=== PATIENT | female | born 1965 | race Caucasian/White ===

== ENCOUNTER → 2019-08-14 | Outpatient (CLI) | payer OTHER ==
--- NOTE | 2019-08-14 13:29 | RADIOLOGY REPORT (SQ) ---
EXAM DESCRIPTION: UGI SERIES COMPLETED DATE/TIME: 08/14/2019 8:38 am REASON FOR STUDY: DIAPHRAGMATIC HERNIA WITHOUT OBSTRUCTION OR GANGRE K44.9 DIAPHRAGMATIC HERNIA WIT HOUT OBSTRUCTION OR GANGRENE COMPARISON: None. TECHNIQUE: Under fluoroscopic guidance, patient ingested effervescent granules followed by thick and thin barium. Fluoroscopic spot images and routine radiographic images acquired and stored on PACS. 12 MM BARIUM TABLET GIVEN: Barium tablet passed easily through the esophagus and into the stomach wit hout delay. LIMITATIONS: None. FLUOROSCOPY TIME: FLUORO TIME: 3 minutes 15 images saved to PACS. FINDINGS: NEUROMUSCULAR COORDINATION OF SWALLOW: Normal. No aspiration. ESOPHAGEAL MOTILITY: Normal peristalsis. No esophageal spasm. ESOPHAGEAL MUCOSA: Normal mucosa without masses or ulceration. GASTRO-ESOPHAGEAL JUNCTION: Small hiatal hernia may be present. Gastroesophageal reflux to the level of the clavicles demonstrated. STOMACH: Normal without masses or ulcerations. GASTRIC OUTLET: No delay in emptying. Normal pylorus. DUODENAL BULB: Normal distention. No spasm or ulceration. DUODENUM: Mucosa normal. No extrinsic masses or malrotation. PROXIMAL SMALL BOWEL: Mucosa normal. No extrinsic masses or malrotation. NON-GI TRACT STRUCTURES: No significant finding. OTHER: No other significant finding. IMPRESSION: SMALL HIATAL HERNIA WITH GASTROESOPHAGEAL REFLUX. OTHERWISE UNREMARKABLE STUDY. COMMENT: None Quality ID [id number]: Final reports for procedures using fluoroscopy that document radiation exposure alexis malena, or exposure time and number of fluorographic images (if radiation exposure indices are not avail able) TECHNICAL DOCUMENTATION: JOB ID: [id number] [employer]- All Rights Reserved Reading location - IP/workstation name: [email or web address] [id number]
== END ==
LOC: RAD 07:55
PROVIDERS: ATTEND Internal Medicine Gastroenterology
DX: K44.9 Diaphragmatic hernia without obstruction or gangrene (principal); K21.9 Gastro-esophageal reflux disease without esophagitis; R11.11 Vomiting without nausea
CPT/HCPCS: 74247

== ENCOUNTER 2019-09-07 17:47 | Emergency (ER) | payer OTHER ==
[2019-09-07] MEDS ORDERED: NORMAL SALINE 1000 ML 1,000 ML IV ONE (18:17)
[2019-09-07] MEDS ORDERED: METOCLOPRAMIDE HCL INJ/PF 10 MG/2 ML SDV IV ONE (18:17)
[2019-09-07] MEDS ORDERED: MAG HYDROX/AL HYDROX/SIMETH SUSP 30 ML UDCUP PO PRN (18:19)
[2019-09-07] MEDS ORDERED: LIDOCAINE 2% VISCOUS SOLN 20 ML UDCUP PO PRN (18:19)
[2019-09-07] MEDS ORDERED: MORPHINE SULFATE 10 MG/ML INJ IV ONE (18:38)
[2019-09-07 18:42] LABS: ABSOLUTE BASOPHILS # (AUTO) 0.1 10^3/uL (0.0-0.2); ABSOLUTE EOSINOPHILS # (AUTO) 0.1 10^3/uL (0.0-0.6); ABSOLUTE LYMPHOCYTES (AUTO) 1.4 10^3/uL (0.5-4.7); ABSOLUTE MONOCYTES (AUTO) 0.4 10^3/uL (0.1-1.4); BASOPHILS % (AUTO) 1.2 % (0-2); EOSINOPHILS % (AUTO) 0.6 % (0-6); HEMATOCRIT 44.2 % (36.0-47.0); HEMOGLOBIN 14.8 g/dL (12.0-15.5); MEAN CORPUSCULAR HEMOGLOBIN 29.7 pg (27.0-33.4); MEAN CORPUSCULAR HGB CONC 33.4 g/dL (32.0-36.0); MEAN CORPUSCULAR VOLUME 89 fl (80-97); PLATELET COUNT 284 10^3/uL (150-450); RED BLOOD COUNT 4.98 10^6/uL (3.72-5.28); RED CELL DISTRIBUTION WIDTH 13.8 % (11.5-14.0); SEGMENTED NEUTROPHILS % (AUTO) 81.2 % (42-78); TOTAL CELLS COUNTED % (AUTO) 100 %; WHITE BLOOD COUNT 11.1 10^3/uL (4.0-10.5)
[2019-09-07 18:49] LABS: ALBUMIN 4.3 g/dL (3.5-5.0); ALKALINE PHOSPHATASE 262 U/L (38-126); ANION GAP 12 (5-19); ASPARTATE AMINO TRANSFERASE 493 U/L (14-36); BILIRUBIN,DIRECT 1.6 mg/dL (0.0-0.4); BILIRUBIN,TOTAL 2.2 mg/dL (0.2-1.3); BLOOD UREA NITROGEN 20 mg/dL (7-20); CALCIUM 9.5 mg/dL (8.4-10.2); CARBON DIOXIDE 26 mmol/L (22-30); CHLORIDE 102 mmol/L (98-107); GLUCOSE 208 mg/dL (75-110); POTASSIUM 4.5 mmol/L (3.6-5.0); TOTAL PROTEIN 7.2 g/dL (6.3-8.2)
[2019-09-07 19:14] LABS: APPEARANCE,URINE CLEAR; BILIRUBIN,URINE NEGATIVE (NEGATIVE); COLOR,URINE YELLOW; GLUCOSE, URINE >=500 mg/dL (NEGATIVE); KETONES,URINE 80 mg/dL (NEGATIVE); LEUKOCYTE ESTERASE,URINE NEGATIVE (NEGATIVE); NITRITE,URINE NEGATIVE (NEGATIVE); PROTEIN,URINE NEGATIVE (NEGATIVE); URINE SPECIFIC GRAVITY 1.011; UROBILINOGEN,URINE NEGATIVE mg/dL (<2.0)
--- NOTE | 2019-09-07 20:35 | RADIOLOGY REPORT (SQ) ---
CT ABDOMEN PELVIS WITH IV CONTRAST EXAM DATE: 09/07/2019 6:17 PM MARKET DEVELOPMENT MANAGER HISTORY: Epigastric pain. COMPARISON: None. TECHNIQUE: CT scan of the abdomen and pelvis was performed with IV contrast. This exam was performed according to our departmental dose-optimization program, which includes automated exposure control, adjustment of the mA and/or kV according to patient size and/or use of iterative reconstruction technique. FINDINGS: The lung bases are clear. No pleural or pericardial effusions. Hepatic steatosis. Simple cyst in the left hepatic lobe. There has been a prior cholecystectomy. Spleen, pancreas, adrenal glands, and kidneys are normal. Bilateral tubal ligation clips are seen. The small and large bowel including the appendix are normal. No intraperitoneal free fluid or free air is seen. Normal caliber aorta. No acute bony findings. No abnormal body wall hernia is seen. IMPRESSION: 1. Hepatic steatosis; correlate with lab values. 2. Prior cholecystectomy. 3. No urinary stones or hydronephrosis.
--- NOTE | 2019-09-07 20:48 | ER Document Report ---
ED General - General Chief Complaint: Abdominal Pain Stated Complaint: ABDOMINAL PAIN Time Seen by Provider: 09/07/19 18:05 Primary Care Provider: STACIA BLANKENSHIP MD [Primary Care Provider] - Follow up as needed Mode of Arrival: Ambulatory Information source: Patient TRAVEL OUTSIDE OF THE [place] IN LAST 30 DAYS: No - HPI Notes: Patient presents complaining of severe epigastric pain. She states that she has been having this pain off and on now for several months. She states that usually will go away with some vomiting. Tonight it was severe and would not relent. Nothing made it better or worse. She states is in the epigastric area and radiates to her chest. She says it feels like a twisting sensation. It is constant. She has had some nausea but no significant vomiting. No problems with bowel movements. She has had a previous cholecystectomy. No shortness of breath. - Related Data Allergies/Adverse Reactions: No Known Allergies Allergy (Unverified 09/07/19 18:17) Past Medical History - General Information source: Patient - Social History Smoking Status: Never Smoker Frequency of alcohol use: None Drug Abuse: None Family History: Reviewed & Not Pertinent Patient has suicidal ideation: No Patient has homicidal ideation: No Endocrine Medical History: Reports: Hx Diabetes Mellitus Type 2 GI Medical History: Reports: Hx Gastroesophageal Reflux Disease Review of Systems - Review of Systems Constitutional: denies: Chills, Fever Cardiovascular: Chest pain. denies: Palpitations Respiratory: denies: Cough, Short of breath Female Genitourinary: Post menopausal. denies: -: Yes All other systems reviewed and negative Physical Exam - Vital signs Vitals: Temp Pulse Resp BP Pulse Ox 97.9 F 66 18 163/93 H 100 09/07/19 18:02 09/07/19 18:02 09/07/19 18:02 09/07/19 18:02 09/07/19 18:02 Interpretation: Hypertensive - General General appearance: Appears well, Alert In distress: None - HEENT Head: Normocephalic, Atraumatic Eyes: Normal Pupils: PERRL - Respiratory Respiratory status: No respiratory distress Chest status: Nontender Breath sounds: Normal Chest palpation: Normal - Cardiovascular Rhythm: Regular Heart sounds: Normal auscultation Murmur: No - Abdominal Inspection: Normal Distension: No distension Bowel sounds: Normal Tenderness: Tender - Some minimal bilateral upper quadrant and epigastric tenderness to palpation.. No: Guarding, Rebound Organomegaly: No organomegaly - Back Back: Normal, Nontender - Extremities General upper extremity: Normal inspection, Nontender, Normal color, Normal ROM, Normal temperature General lower extremity: Normal inspection, Nontender, Normal color, Normal ROM, Normal temperature, Normal weight bearing. No: Gael's sign - Neurological Neuro grossly intact: Yes Cognition: Normal Orientation: AAOx4 [place] Coma Scale Eye Opening: Spontaneous Bry[place] Coma Scale Verbal: Oriented Bry[place] Coma Scale Motor: Obeys Commands [place] Coma Scale Total: 15 Speech: Normal Motor strength normal: LUE, RUE, LLE, RLE Sensory: Normal - Psychological Associated symptoms: Normal affect, Normal mood - Skin Skin Temperature: Warm Skin Moisture: Dry Skin Color: Normal Course - Re-evaluation Re-evalutation: 09/07/19 20:55 Patient presents with severe epigastric pain. Differential included possible gastroparesis. She did state the pain got better after the Reglan and morphine. She is diabetic and this is a possibility. A remote possibility was gastric volvulus with CT shows no evidence of this. CT is otherwise unremarkable. She has had a cholecystectomy so at this time since she has some elevated LFTs and epigastric pain I will order an ultrasound to evaluate her common bile duct. She shows no evidence of cholangitis. She states she does feel better after the medications. I will turn the patient over to Dr. saeed will follow up on ultrasound determine final disposition. I am not sure if patient will be admitted or discharge. However the EMR makes me put in a disposition of either admission or discharge in order to sign the chart. So at this time I think the patient probably more likely to go home than be admitted therefore I will put discharge on the EMR for the sake of being able to sign the chart. 09/07/19 20:57 - Vital Signs Vital signs: Temp Pulse Resp BP Pulse Ox 97.9 F 95 13 139/77 H 95 09/07/19 18:02 09/07/19 19:52 09/07/19 20:01 09/07/19 20:00 09/07/19 20:01 - Laboratory Result Diagrams: 09/07/19 17:57 09/07/19 17:57 Laboratory results interpreted by me: 09/07/19 09/07/19 09/07/19 17:57 17:57 18:39 WBC 11.1 H Absolute Neuts (auto) 9.0 H Seg Neutrophils % 81.2 H Glucose 208 H Total Bilirubin 2.2 H Direct Bilirubin 1.6 H AST 493 H Alkaline Phosphatase 262 H Lipase 432.6 H Urine Glucose (UA) >=500 H Urine Ketones 80 H - Diagnostic Test Radiology reviewed: Image reviewed, Reports reviewed - EKG Interpretation by Me EKG shows normal: Sinus rhythm Rate: Normal - 97 Rhythm: NSR [place]/QRS: No: Right axis deviation, Left axis deviation Discharge - Discharge Clinical Impression: Epigastric pain Condition: Stable Disposition: HOME, SELF-CARE Referrals: STACIA BLANKENSHIP MD [Primary Care Provider] - Follow up as needed
--- NOTE | 2019-09-07 22:28 | RADIOLOGY REPORT (SQ) ---
US ABDOMEN LIMITED EXAM DATE: 09/07/2019 8:55 PM QUALITY TECHNICIAN HISTORY: Right upper quadrant pain. COMPARISON: None. TECHNIQUE: Grayscale and color Doppler imaging of the right upper quadrant was performed. FINDINGS: There is increased echogenicity of the hepatic parenchyma, likely representing hepatic steatosis. The main portal vein has normal hepatopetal flow. There has been a prior cholecystectomy. The common bile duct is normal caliber. The pancreas is not well-visualized due to overlying bowel gas. No hydronephrosis or shadowing renal stones are identified. The right kidney is normal in size. The visualized portions of the IVC and aorta are patent. IMPRESSION: Hepatic steatosis. Cholecystectomy.
[2019-09-08 02:07] VITALS: BP 121/72
--- NOTE | 2019-09-08 09:34 | EKG REPORT ---
SEVERITY:- BORDERLINE ECG - SINUS RHYTHM BORDERLINE PROLONGED QT INTERVAL : Confirmed by: Alessandra Nieves 08-Sep-2019 09:34:16
== END 2019-09-08 02:04 | disposition home or self-care (01) ==
LOC: ER 17:47
DX: R10.13 Epigastric pain (principal); R10.812 Left upper quadrant abdominal tenderness; R10.811 Right upper quadrant abdominal tenderness; R10.816 Epigastric abdominal tenderness; R07.9 Chest pain, unspecified; R11.0 Nausea; R79.89 Other specified abnormal findings of blood chemistry; E11.9 Type 2 diabetes mellitus without complications; Z90.49 Acquired absence of other specified parts of digestive tract; Z87.19 Personal history of other diseases of the digestive system
CPT/HCPCS: 93005; 36415; 83690; 85025; 80053; 81001; 84484; 76705; 74177; 93010; J3490; J2765; J2270; J7030; 96361; 96374; 96375; 99284

== ENCOUNTER 2019-10-07 19:43 | Emergency (ER) | payer OTHER ==
[2019-10-07] MEDS ORDERED: ONDANSETRON 4 MG TAB.RAPDIS PO ONE (20:43)
[2019-10-07] MEDS ORDERED: MORPHINE SULFATE 10 MG/ML INJ IV ONE (21:18)
[2019-10-07] MEDS ORDERED: METOCLOPRAMIDE HCL INJ/PF 10 MG/2 ML SDV IV ONE (21:18)
--- NOTE | 2019-10-07 21:21 | ER Document Report ---
ED Medical Screen (RME) - General Chief Complaint: Abdominal Pain Stated Complaint: ABDOMINAL PAIN Time Seen by Provider: 10/07/19 21:11 Primary Care Provider: STACIA BLANKENSHIP MD [Primary Care Provider] - Follow up as needed Notes: 54-year-old female with recent diagnosis of cholelithiasis presents to the emergency department with chief complaint of epigastric and right upper quadrant pain. Patient was seen at [facility] and had a "MRI" of her abdomen, unclear if this was an MRCP. Patient has an appointment for November but her symptoms got acutely worse and she sought treatment in the emergency department. She has nausea and vomiting, feels hot, no chills, no diarrhea. Exam: Well-appearing in mild distress, lungs clear to auscultation all mahmood, regular cardiac rate and rhythm, abdominal exam limited in triage but some epigastric tenderness to palpation I have greeted and performed a rapid initial assessment of this patient. A comprehensive ED assessment and evaluation of the patient, analysis of test results and completion of medical decision making process will be conducted by an additional ED providers. TRAVEL OUTSIDE OF THE U[place] IN LAST 30 DAYS: No - Related Data Allergies/Adverse Reactions: No Known Allergies Allergy (Unverified 09/07/19 18:17) Past Medical History Endocrine Medical History: Reports: Hx Diabetes Mellitus Type 2 GI Medical History: Reports: Hx Gastroesophageal Reflux Disease Physical Exam - Vital signs Vitals: Temp Pulse Resp BP Pulse Ox 97.9 F 65 20 183/84 H 95 10/07/19 21:11 10/07/19 21:11 10/07/19 21:11 10/07/19 21:11 10/07/19 21:11 Course - Vital Signs Vital signs: Temp Pulse Resp BP Pulse Ox 97.9 F 65 20 183/84 H 95 10/07/19 21:11 10/07/19 21:11 10/07/19 21:11 10/07/19 21:11 10/07/19 21:11 Doctor's Discharge - Discharge Referrals: STACIA BLANKENSHIP MD [Primary Care Provider] - Follow up as needed
[2019-10-07] MEDS ORDERED: PROMETHAZINE HCL INJ 25 MG/1 ML VIAL IM ONE (21:29)
--- NOTE | 2019-10-07 22:41 | RADIOLOGY REPORT (SQ) ---
EXAM DESCRIPTION: US ABDOMEN DOPPLER LIMITED COMPLETED DATE/TME: 10/07/2019 21:16 CLINICAL HISTORY: 54 years, Female, Known gallstone, r/o cholecystitis COMPARISON: Prior study from 09/07/2019 TECHNIQUE: Axial 2-D grayscale images of the abdomen were acquired. Doppler was utilized. LIMITATIONS: Overall, the study was limited secondary to bowel gas artifact and patient body habitus. FINDINGS: The visualized portions of the pancreatic head and body appear normal in echogenicity. The pancreatic duct appears somewhat prominent, measuring 3 mm in AP diameter. Visualized portions of the abdominal aorta appear normal. Specifically, the proximal abdominal aorta measures 2.3 cm in AP diameter. The mid to distal abdominal aorta was not visualized. The liver is heterogeneously hyperechoic. No focal liver lesion is appreciated. It measures 16.7 cm in length. Antegrade flow is documented within the main portal vein, albeit somewhat pulsatile. The gallbladder is absent. Common bile duct is not visualized secondary to the technical limitations of the exam. Right kidney grossly measures 11.0 cm in length. No gross evidence of hydronephrosis. IMPRESSION: Substantially limited examination secondary to bowel gas and patient body habitus. As a result, the common bile duct was not visualized. Heterogeneously hyperechoic liver, indicating a diffuse hepatocellular disease such as hepatic steatosis. Cholecystectomy. copyright 2010 [employer]- All Rights Reserved
[2019-10-07 22:42] LABS: ABSOLUTE BASOPHILS # (AUTO) 0.1 10^3/uL (0.0-0.2); ABSOLUTE LYMPHOCYTES (AUTO) 1.2 10^3/uL (0.5-4.7); ABSOLUTE MONOCYTES (AUTO) 0.3 10^3/uL (0.1-1.4); ABSOLUTE NEUT (AUTO) 12.4 10^3/uL (1.7-8.2); BASOPHILS % (AUTO) 0.4 % (0-2); EOSINOPHILS % (AUTO) 0.2 % (0-6); HEMATOCRIT 45.5 % (36.0-47.0); HEMOGLOBIN 15.4 g/dL (12.0-15.5); LYMPHOCYTES % (AUTO) 8.5 % (13-45); MEAN CORPUSCULAR HEMOGLOBIN 29.8 pg (27.0-33.4); MEAN CORPUSCULAR HGB CONC 33.9 g/dL (32.0-36.0); MEAN CORPUSCULAR VOLUME 88 fl (80-97); MONOCYTES % (AUTO) 2.4 % (3-13); PLATELET COUNT 314 10^3/uL (150-450); RED BLOOD COUNT 5.18 10^6/uL (3.72-5.28); SEGMENTED NEUTROPHILS % (AUTO) 88.5 % (42-78); TOTAL CELLS COUNTED % (AUTO) 100 %
[2019-10-07 22:52] LABS: ALBUMIN 4.7 g/dL (3.5-5.0); ALKALINE PHOSPHATASE 246 U/L (38-126); ANION GAP 13 (5-19); ASPARTATE AMINO TRANSFERASE 395 U/L (14-36); BILIRUBIN,DIRECT 1.6 mg/dL (0.0-0.4); BILIRUBIN,TOTAL 1.9 mg/dL (0.2-1.3); BLOOD UREA NITROGEN 16 mg/dL (7-20); CALCIUM 10.2 mg/dL (8.4-10.2); CARBON DIOXIDE 28 mmol/L (22-30); CHLORIDE 101 mmol/L (98-107); GLUCOSE 221 mg/dL (75-110); POTASSIUM 5.2 mmol/L (3.6-5.0); TOTAL PROTEIN 7.7 g/dL (6.3-8.2)
[2019-10-08] MEDS ORDERED: METOCLOPRAMIDE HCL INJ/PF 10 MG/2 ML SDV IV ONE (00:45)
[2019-10-08] MEDS ORDERED: MORPHINE SULFATE 10 MG/ML INJ IV ONE (01:00)
[2019-10-08 02:09] LABS: APPEARANCE,URINE SLIGHTLY-CLOUDY; BILIRUBIN,URINE SMALL (NEGATIVE); COLOR,URINE AMBER; GLUCOSE, URINE >=500 mg/dL (NEGATIVE); KETONES,URINE 20 mg/dL (NEGATIVE); LEUKOCYTE ESTERASE,URINE TRACE (NEGATIVE); NITRITE,URINE NEGATIVE (NEGATIVE); PROTEIN,URINE 30 mg/dL (NEGATIVE); URINE SPECIFIC GRAVITY 1.017
--- NOTE | 2019-10-08 02:37 | ER Document Report ---
ED General - General Chief Complaint: Abdominal Pain Stated Complaint: ABDOMINAL PAIN Time Seen by Provider: 10/07/19 21:11 Primary Care Provider: STACIA BLANKENSHIP MD [Primary Care Provider] - Follow up as needed Mode of Arrival: Ambulatory Information source: Patient TRAVEL OUTSIDE OF THE [place] IN LAST 30 DAYS: No - HPI Onset: Other - over the last month Onset/Duration: Gradual Quality of pain: Sharp Severity: Moderate Pain Level: 4 Associated symptoms: Nausea Exacerbated by: Other - Unknown Similar symptoms previously: Yes Recently seen / treated by doctor: Yes - on 09/07/19 Notes: 54 year old female with a history or DM, Gastroparesis, prior Cholecystectomy, and apparently most recently a retained biliary stone seen on MRCP here for abdominal pains off and on which she has had over the last month. The patient was seen in this ER on 09/07/[address] and she had a CT showing no acute process. The patient had an US ordered from Triage today showing no acute process as well. The patient tells me she is supposed to have an outpatient ERCP but it has not been scheduled yet. The patient came to the ER for pain and to ensure she has no complication from her apparent retained biliary stone. - Related Data Allergies/Adverse Reactions: No Known Allergies Allergy (Unverified 09/07/19 18:17) Past Medical History - Social History Smoking Status: Never Smoker Frequency of alcohol use: Social Drug Abuse: None Lives with: Family Family History: Reviewed & Not Pertinent Patient has suicidal ideation: No Patient has homicidal ideation: No Endocrine Medical History: Reports: Hx Diabetes Mellitus Type 2 GI Medical History: Reports: Hx Gastroesophageal Reflux Disease, Other - Gastroparesis Musculoskeletal Medical History: Reports None Psychiatric Medical History: Reports: None Infectious Medical History: Reports: None Past Surgical History: Reports: Hx Cholecystectomy, Hx Tubal Ligation, Other - Uterine Ablation Review of Systems - Review of Systems Constitutional: No symptoms reported EENT: No symptoms reported Cardiovascular: No symptoms reported Respiratory: No symptoms reported Gastrointestinal: Abdominal pain, Nausea Genitourinary: No symptoms reported Female Genitourinary: No symptoms reported Skin: No symptoms reported Hematologic/Lymphatic: No symptoms reported Neurological/Psychological: No symptoms reported Physical Exam - Vital signs Vitals: Temp Pulse Resp BP Pulse Ox 97.9 F 65 20 183/84 H 95 10/07/19 21:11 10/07/19 21:11 10/07/19 21:11 10/07/19 21:11 10/07/19 21:11 - Notes Notes: GENERAL: Well-appearing, well-nourished and in no acute distress. HEAD: Atraumatic, normocephalic. EYES: Pupils equal round and reactive to light, extraocular movements intact, sclera anicteric, conjunctiva are normal. ENT: Nares patent, oropharynx clear without exudates. Moist mucous membranes. NECK: Normal range of motion, supple without lymphadenopathy or JVD. LUNGS: Breath sounds clear to auscultation bilaterally and equal. No wheezes rales or rhonchi. HEART: Regular rate and rhythm without murmurs, rubs or gallops. ABDOMEN: Soft, nontender, normoactive bowel sounds. No guarding, no rebound. No masses appreciated. EXTREMITIES: Normal range of motion, no pitting or edema. No clubbing or cyanosis. NEUROLOGICAL: Cranial nerves II through XII grossly intact. Normal speech, normal gait. PSYCH: Normal mood, normal affect. SKIN: Warm, Dry, normal turgor, no rashes or lesions noted. Course - Re-evaluation Re-evalutation: 10/08/19 02:46 The patient is here for her somewhat chronic abdominal pain (has been going on for over a month). The patient also has some nausea which she attributes to her known gastroparesis. The patient says she has a retained biliary stone which has been seen in MRCP recently and she is supposed to have an ERCP but one has not been scheduled for her yet. The patient's labs and US today in the ER are not consistent with an obstructed biliay stone as her LFTs are normal and her common bile duct does not look enlarged. Patient was given a short course of pain medications and she was was told to follow up with a GI doctor for an ERCP. Will DC on Naproxen and Tramadol. - Vital Signs Vital signs: Temp Pulse Resp BP Pulse Ox 97.9 F 65 20 183/84 H 95 10/07/19 21:11 10/07/19 21:11 10/07/19 21:11 10/07/19 21:11 10/07/19 21:11 - Laboratory Result Diagrams: 10/07/19 22:08 10/07/19 22:08 Laboratory results interpreted by me: 10/07/19 10/07/19 10/08/19 22:08 22:08 01:20 WBC 14.0 H Lymph % (Auto) 8.5 L [place] % (Auto) 2.4 L Absolute Neuts (auto) 12.4 H Seg Neutrophils % 88.5 H Potassium 5.2 H Glucose 221 H Total Bilirubin 1.9 H Direct Bilirubin 1.6 H AST 395 H Alkaline Phosphatase 246 H Urine Protein 30 H Urine Glucose (UA) >=500 H Urine Ketones 20 H Urine Bilirubin SMALL H Urine Urobilinogen 4.0 H Ur Leukocyte Esterase TRACE H Discharge - Discharge Clinical Impression: Abdominal pain Qualifiers: Abdominal location: upper abdomen, unspecified Qualified Code(s): R10.10 - Upper abdominal pain, unspecified Condition: Fair Disposition: HOME, SELF-CARE Instructions: Abdominal Pain ([facility]) Additional Instructions: Use the prescribed Naproxen for pain. Use the prescribed Tramadol when pain is not well controlled. Use your previously prescribed Reglan for nausea and GI upset. Follow up with a GI Doctor who can perform ERCPs as soon s possible. Prescriptions: Tramadol HCl [Ultram 50 mg Tablet] 50 mg PO Q6HP PRN #12 tab PRN Reason: Naproxen 500 mg PO BID PRN #14 tablet PRN Reason: Referrals: STACIA BLANKENSHIP MD [Primary Care Provider] - Follow up as needed
[2019-10-08 03:04] VITALS: BP 152/75
--- NOTE | 2019-10-09 13:00 | EKG REPORT ---
SEVERITY:- ABNORMAL ECG - SINUS RHYTHM MULTIPLE ATRIAL PREMATURE COMPLEXES ST ELEVATION, NON SPECIFIC : Confirmed by: Marian Rivas MD 09-Oct-2019 12:59:41
--- NOTE | 2019-10-09 13:00 | EKG REPORT ---
SEVERITY:- BORDERLINE ECG - UNKNOWN RHYTHM, IRREGULAR RATE 45-64 : Confirmed by: Marian Rivas MD 09-Oct-2019 12:59:45
== END 2019-10-08 03:02 | disposition home or self-care (01) ==
LOC: ER 19:43
DX: E11.43 Type 2 diabetes mellitus with diabetic autonomic (poly)neuropathy (principal); K31.84 Gastroparesis; R10.10 Upper abdominal pain, unspecified; R11.0 Nausea; Z90.49 Acquired absence of other specified parts of digestive tract
CPT/HCPCS: 99284; 96374; 96375; 36415; 83690; 85025; 80053; 81001; 76705; 93976; S0119; J2765; J2270; 93005; 93010

== ENCOUNTER → 2020-08-04 | Outpatient (CLI) | payer OTHER ==
--- NOTE | 2020-08-04 15:29 | WOMENS IMAGING REPORT ---
EXAM DESCRIPTION: BILAT SCREENING MAMMO W/CAD IMAGES COMPLETED DATE/TIME: 08/04/2020 1:57 pm REASON FOR STUDY: Z12.31 ENCNTR SCREEN MAMMOGRAM FOR MALIGNANT NEOPLASM OF BREAST Z12.31 ENCNTR SCR EEN MAMMOGRAM FOR MALIGNANT NEOPLASM OF [place] COMPARISON: 07/31/2016, 06/28/2015, 01/18/2014 EXAM PARAMETERS: Standard craniocaudal and mediolateral oblique views of each breast recorded using digital acquisition. Read with the assistance of CAD. .[facility] - [employer] Version 9.2 LIMITATIONS: None. FINDINGS: No suspicious masses, suspicious calcifications or architectural distortion. No areas of c oncern. IMPRESSION: NEGATIVE MAMMOGRAM. BIRADS 1 BREAST DENSITY: b. There are scattered areas of fibroglandular density. BIRAD: ASSESSMENT: 1 NEGATIVE RECOMMENDATION: ROUTINE SCREENING COMMENT: The patient has been notified of the results by letter per MQSA requirements. Additional no tification policies are in place for contacting patient with suspicious or incomplete findings. Quality ID #[id number]: The [employer] recommends an annual screening mammogram for women aged 40 years or over. This facility utilizes a reminder system to ensure that all patients receive reminder letters, and/or direct phone calls for appointments. This includes reminders for routine scr eening mammograms, diagnostic mammograms, or other Breast Imaging Interventions when appropriate. Th is patient will be placed in the appropriate reminder system. TECHNICAL DOCUMENTATION: FINDING NUMBER: (1) ASSESSMENT: (1) JOB ID: [id number] 2010 [employer]- All Rights Reserved Reading location - IP/workstation name: [email or web address]
== END ==
LOC: WI 13:19
PROVIDERS: ATTEND Family Medicine Geriatric Medicine
DX: Z12.31 Encounter for screening mammogram for malignant neoplasm of breast (principal)
CPT/HCPCS: 77067